=== PATIENT | female | born 1970 | race Caucasian/White ===

== ENCOUNTER 2020-10-18 15:03 | Emergency (ER) | payer OTHER ==
[~2020-10-18 15:03] MED LIST: KEFLEX500 MG PO; LINZESS145 MCG PO; LISINOPRIL 20MG20 MG PO; ONDANSETRON HCL8 MG PO; ONDANSETRON ODT4 MG PO/SL; ORILISSA200 MG PO; PEPCID AC20 MG PO; PRINIVIL20 MG PO; SYNTHROID88 MCG PO; TRAMADOL HCL50 MG PO
[2020-10-18] MEDS ORDERED: CYCLOBENZAPRINE10 MG PO (16:42)
[2020-10-18] MEDS ORDERED: MEDROL 4MG DOSEP4 MG PO (16:42)
== END 2020-10-18 17:13 | disposition home or self-care (01) ==
LOC: FER 15:03
DX: S46.912A Strain of unspecified muscle, fascia and tendon at shoulder and upper arm level, left arm, initial encounter (principal); I10 Essential (primary) hypertension; E07.9 Disorder of thyroid, unspecified; Z79.899 Other long term (current) drug therapy; X58.XXXA Exposure to other specified factors, initial encounter
CPT/HCPCS: 96372; 99283; J1100; J1885

== ENCOUNTER 2021-04-01 16:22 | Emergency (ER) | payer OTHER ==
[~2021-04-01 16:22] MED LIST changes: +CYCLOBENZAPRINE10 MG PO; +MEDROL 4MG DOSEP4 MG PO
[2021-04-01 17:51] LABS: BASOPHIL 0.6 % (0-2); EOSINOPHIL 0.6 % (0-5); HCT 45.8 % (37.0-47.0); HGB 16.1 g/dl (12.5-16.0); LYMPHOCYTE 18.5 % (15-48); MCHC 35.2 g/dL (32.0-36.0); MCV 88.1 fL (78.0-100.0); MONOCYTE 6.6 % (0-12); MPV 9.5 fL (6.0-9.5); NEUTROPHIL 73.4 % (41-80); NRBC 0; PLT 284 K/uL (150-400); RDW 12.7 % (11.5-14.0); WBC 10.8 K/uL (4.0-10.5)
[2021-04-01 18:10] LABS: BILIRUBIN - TOTAL 0.9 mg/dL (0.2-1.0); BUN/CREAT RATIO (CALC) 18.2 RATIO; CREATININE 1.1 mg/dL (0.51-0.95); GLOBULIN (CALCULATION) 4.3 g/dL; POTASSIUM 3.5 mmol/L (3.5-5.1); TOTAL PROTEIN 8.3 g/dL (6.4-8.2)
[2021-04-01 18:27] LABS: BILIRUBIN 1+ mg/dL (NEGATIVE); BLOOD NEGATIVE Ery/uL (NEGATIVE); CLARITY CLOUDY (CLEAR); COLOR YELLOW (YELLOW); GLUCOSE (U) NORMAL (NORMAL); LEUKOCYTES TRACE Leu/uL (NEGATIVE); NITRITE NEGATIVE (NEGATIVE); PROTEIN TRACE (LOW) mg/dL (NEGATIVE); SPECIFIC GRAVITY >=1.030 (1.001-1.030); UROBILINOGEN 0.2 mg/dL (0.2-1.0); pH 5.5 (5.0-9.0)
[2021-04-01 19:02] LABS: BACTERIA 1+; MUCOUS MODERATE
[2021-04-01 19:03] LABS: AMORPHOUS URATES CRYSTALS MODERATE
[2021-04-02] MEDS ORDERED: BACTRIM DS TAB1 EACH PO (00:56)
[2021-04-02] MEDS ORDERED: PRILOSEC20 MG PO (01:01)
== END 2021-04-02 01:08 | disposition home or self-care (01) ==
LOC: FER 16:22
PROVIDERS: Emergency Medicine
DX: K29.70 Gastritis, unspecified, without bleeding (principal); N12 Tubulo-interstitial nephritis, not specified as acute or chronic; R19.7 Diarrhea, unspecified; I10 Essential (primary) hypertension; Z98.890 Other specified postprocedural states; Z90.49 Acquired absence of other specified parts of digestive tract
CPT/HCPCS: 36415; 80053; 81001; 82150; 83690; 85025; J1885; J7030